=== PATIENT | male | born 1950 | race Caucasian/White ===

== ENCOUNTER 2024-05-12 09:15 | Emergency (ER) | payer MEDICARE ==
[2024-05-12] MEDS: Take Home: Acetaminophen/HYDROcodone 325-5 MG, 5 Tab Pack PO ONE (10:31)
== END 2024-05-12 10:34 | disposition home or self-care (01) ==
LOC: VM.ED 09:15
DX: S43.102A Unspecified dislocation of left acromioclavicular joint, initial encounter (principal); Z88.8 Allergy status to other drugs, medicaments and biological substances; W06.XXXA Fall from bed, initial encounter
CPT/HCPCS: 73030-LT; 99283; A9270-GY